=== PATIENT | female | born 1995 ===

== ENCOUNTER → 2022-06-04 11:06 | Outpatient (BNVA) | payer BC, MEDICAID, SELFPAY | PROVIDERS: Visit Provider Internal Medicine | DX: R21 Rash and other nonspecific skin eruption (principal); L40.9 Psoriasis, unspecified | CPT/HCPCS: 72202; 73120 ==

== ENCOUNTER → 2022-07-12 13:18 | Outpatient (BNVA) | payer BC, MEDICAID, SELFPAY | PROVIDERS: PCP Family Medicine; Visit Provider Internal Medicine | DX: M25.50 Pain in unspecified joint (principal) | CPT/HCPCS: 86160; 86162; 86200; 86235; 86255; 86376 ==

== ENCOUNTER → 2023-11-22 10:15 | Outpatient (BNVA) | payer BC, SELFPAY | PROVIDERS: PCP Family Medicine; Visit Provider Psychiatry & Neurology Psychiatry | DX: Z79.899 Other long term (current) drug therapy (principal) | CPT/HCPCS: 80053; 80061; 83036; 84443; 85025 ==

== ENCOUNTER → 2024-08-22 14:35 | Outpatient (BNVA) | payer OTHER, SELFPAY ==
[2023-12-02 11:28] VITALS: BP 130/67; BMI 50.9
== END ==
PROVIDERS: PCP Family Medicine; Visit Provider Psychiatry & Neurology Psychiatry
DX: F60.3 Borderline personality disorder (principal); F41.1 Generalized anxiety disorder; F33.2 Major depressive disorder, recurrent severe without psychotic features
CPT/HCPCS: 80061; 83036